=== PATIENT | male | born 1975 | race Caucasian/White ===

== ENCOUNTER 2016-11-10 18:32 | Observation (INO) | payer SELFPAY ==
[~2016-11-10] VITALS: Ht 175.3 cm; Wt 131.6 kg
--- NOTE | ~2016-11-10 | ESTC ---
Cardiac Perfusion Imaging Demographics Patient Name BETO Arrington Gender Male Patient Number [id number] Race Visit Number [id number] Ethnicity Corporate ID Room Number G6302 Accession Number [id number] Height 69 inches Date of 1975 Weight 285 pounds Interpreting Jorge Luis Alcaraz Date of study 11/11/2016 Physician Supervising /MARIA NM Technologist Pam Alejo Ordering Physician Jorge Luis Alcaraz Stress Nina Vincent MD bench lay out technician RVT Stress ECG Reading Jorge Luis Alcaraz Nurse Francesco Fernandez Physician sole layer hand Procedure Type: Nuclear Stress Test:Exercise, Cardiolite Stress Test Procedure Start time: 11/11/2016 08:29 Indications: Chest pain. Risk Factors The patient risk factors include:obesity, Current/Recent(w/in 1 year) tobacco use, hypertension and family history of premature CAD. Conclusions Summary No TID. Normal perfusion images. Normal EF and WM. Stress Protocols Resting ECG RSR. Pre-stress physical exam: Un changed. Predicted HR: 177 bpm ECG Findings No ECG changes suggestive of ischemia. Arrhythmias No rhythm abnormality. Symptoms Back of neck pain 3 mins into stress lasting 3 mins into recovery. Leg pain Stress Interpretation Duration:6 mins. Achieved:88% MPHR. METs:7. DP:28 K. No chest pain.Back pain went from "4" to "2". Reason for termination:SOB,Fatigue and leg pain. EKG:No ischemia. No arrythmias. DTS:5 Imaging Results High risk findings Summed scores - Summed stress score: 0 - Summed rest score: 2 - Summed difference score: -2 Stress ejection Ejection fraction:69 % EDV :148 ml ESV :46 ml Stroke volume :102 ml LV mass :173 gr LV size:Normal Normal LV function Imaging Protocols Rest Stress Isotope:Tc99m Sestamibi IV Isotope: Tc99m Sestamibi IV Isotope dose:15.5 mCi Isotope dose:45 mCi Date:11/11/2016 07:28 Date:11/11/2016 09:29 Technique: SPECT Technique: Gated Supine SPECT Supine IV remains in place after procedure. Scan Time:30 minutes post injection Scan Time:45-60 minutes post injection Medical History Admission Data Admission date: 11/10/2016 Admission Time: 21:38 Hospital Status: Inpatient. Signatures dtt: Lissa Kang dtd: 11/11/16 0829 Physician Self Edit
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
--- NOTE | ~2016-11-10 | ECHO ---
Transthoracic Echocardiography Report (TTE) Demographics Patient Name DEVANTE PÉREZ Date of Study 11/11/2016 Patient Number [id number] Visit Number [id number] Date of 1975 Room Number G6302 Gender Male Number Age 41 year(s) Referring Jorge Luis Alcaraz Director Of Physiotherapy Services Zachery Darby Physician MD Nesha Valente MD Physician Interpreting Jorge Luis Alcaraz Dining Room Captain Physician Supervising Ordering Jorge Luis Alcaraz MD/YOANDYP Physician Nurse Stress Director Of Extension Work Conclusions Contractility Score Summary Normal Left Ventricular contractility was noted. Summary The estimated left ventricular ejection fraction is 55-60% with normal WM and wall thickness. Normal cardiac chamber sizes. No significant valvular abnormalities. Procedure Type of Study TTE procedure:2D Echocardiogram, M-Mode, Doppler , Color Doppler. Procedure Date Date: 11/11/2016 Start: 09:34 AM Study Location: Echo Lab Technical Quality: Adequate visualization Indications:Chest pain. Appropriate Use Criteria: 9 Patient Status: Routine HR: 103 bpm BP: 149/75 mmHg M-Mode/2D Measurements LV Diastolic Dimension: 5.61 cm LV Systolic Dimension: 4.1 cm LV Septum Diastolic: 0.87 cm LV PW Diastolic: 0.96 cm AO Root Dimension: 2.8 cm Cardiac Output: 9 l/min LA Dimension: 3.6 cm EF Estimated: 60 % LVOT: 2.2 cm LVOT VTI: 23 cm RV Base: 2.16 cm LV Stroke volume: 87.39 ml RV Length: 7.52 cm TAPSE: 1.97 cm TDI-S': 11.5 cm/s Doppler Measurements AV Peak Velocity: 1.76 m/s MV Peak E-Wave: 0.89 m/s AV Peak Gradient: 12.39 mmHg MV Peak A-Wave: 0.78 m/s AV Mean Gradient: 6 mmHg MV E/A Ratio: 1.14 LVOT Peak Velocity: 1.5 m/s MV P1/2t: 32 msec MV Deceleration Time: 102 msec TR Gradient:6.15 mmHg PV Peak Velocity: 1.1 m/s Estimated RAP:3 mmHg PV Peak Gradient: 4.84 mmHg Estimated RVSP: 9 mmHg Estimated PASP: 9.15 mmHg E' Septal Velocity: 0.07 m/s A' Septal Velocity: 0.11 m/s E' Lateral Velocity: 0.09 m/s A' Lateral Velocity: 0.11 m/s Findings Left Ventricle Normal left ventricle size and function. Right Ventricle Normal right ventricle structure and function. Left Atrium Normal left atrial size. Right Atrium Normal right atrial size. IVC measures 1.52 cm with inspiratory collapse. Mitral Valve Trivial mitral regurgitation by color Doppler. Aortic Valve Normal aortic valve structure and function. Tricuspid Valve Trivial tricuspid regurgitation by color Doppler. Pulmonic Valve Normal pulmonic valve structure and function. Pericardial Effusion No evidence of pericardial effusion. Miscellaneous Visualized portions of the aortic root and ascending aorta appear normal in size. Pleural Effusion No evidence of pleural effusion. Contractility Score LV regional wall motion:(0-Non visualized 1-Normal 2-Hypokinesis 3-Akinesis 4-Dyskinesis 5-Aneurysm) Signature dtt: Lissa Kang dtd: 11/11/16 0934 Physician Self Edit
--- NOTE | ~2016-11-10 | HP ---
PATIENT'S NAME: DEVANTE MCGUIRE AGE: 41 Y [address] ROOM: [address] [place] [address] LOCATION: GPCU ADMIT DATE: 11/10/2016 History & Physical DISCHARGE DATE: FAMILY PHYSICIAN: PHYSICIAN, UNKNOWN ATTENDING PHYSICIAN: SAROJ PRESTON DATE OF SERVICE: HISTORY OF PRESENT ILLNESS: This is a 41-year-old male patient of Dr. García in [place]. Mr. Mcguire is a 41-year-old male patient who presented to the emergency room in [place] with severe pain between his shoulder blades on the left side just to the left of T5 spinous process which was fairly localized and severely tender. The spinous process per se is also tender. The pain radiates to the front occasionally and also to the inframammary area, but it also shoots down the medial aspect of the arm and then all the way down to the thumb and the little finger. The middle three fingers are spared. These pains are initially noted to be 10 on a scale of 1 to 10 with intermittent worsening. The patient took some aspirins at home yesterday and then eventually went to the emergency room today where initial EKG was nonspecifically abnormal and his troponins were negative. The patient was sent over with a consideration that this is unstable angina. Upon arrival to the emergency room, the patient continued to have chest pain and he was very anxious. He has had various different kinds of chest pains in the past and has not been worked up. His stat echo and stat EKG in the emergency room revealed no acute ST-segment changes or wall motion abnormalities in the echo respectively. He had CT of the aorta with angiogram performed, which revealed no significant abnormalities. This was done mainly because there was almost a 25 mm difference between the blood pressures in the left upper extremity versus right upper extremity with the left upper extremity being higher. He has stopped smoking about 3 weeks ago and has not been on any regular structured exercise program. 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 He is currently in functional class 2 with no paroxysmal nocturnal dyspnea or orthopnea. He does have sleep apnea and uses BiPAP not on a very regular fashion. He has no history of syncope even though for the past six months or so he has been intermittently dizzy. He has occasional palpitations and occasional ankle swelling. The patient has history of hypertension but has not taken many medications. He is not diabetic. His lipids are unknown. He quit smoking three weeks ago and he has significant family history of premature coronary artery disease in his dad who had an LA at age of 56. PATIENT'S NAME: DEVANTE MCGUIRE AGE: 41 Y [address] ROOM: [address] [address] LOCATION: [facility] ADMIT DATE: 11/10/2016 History & Physical DISCHARGE DATE: FAMILY PHYSICIAN: PHYSICIAN, UNKNOWN ATTENDING PHYSICIAN: SAROJ PRESTON He has no prior history of LA, angina, nitroglycerin use, rheumatic fever, heart murmur, congestive heart failure, or enlarged heart. MEDICATIONS: 1. He is currently on Zoloft 100 mg at bedtime. 2. Flexeril, ibuprofen, and aspirin taken on a p.r.n. basis. 3. He does take B-complex vitamins and calcium, magnesium, and zinc. ALLERGIES: HE IS ALLERGIC TO TRAMADOL, TRAZODONE, AND VISTARIL. PAST MEDICAL HISTORY: 1. History of asthma. 2. He has not been diagnosed as COPD as yet. 3. Sleep apnea. 4. History of fracture of his left arm and left foot in the past. 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 He is single. He denies abusing alcohol. He does not use any recreational drugs. His appetite and weight are stable. Sleep is fair. FAMILY HISTORY: Positive for premature coronary artery disease in his dad at age of 56. REVIEW OF SYSTEMS: A 12-point review of systems revealed, 1. He does have sleep disturbances. 2. Possible seizure at the age of 14. 3. Some migraine headaches. 4. Sinus problems. 5. Crusting of his eyes. 6. Fracture of his nose. 7. History of epistaxis. 8. Dizziness or ear infection with his equilibrium being off, off and on, for six months. 9. Acid reflux disease and stomach ulcers. 10. Wheezing and some phlegm production without hemoptysis. 11. Fatty liver. 12. History of kidney stones. 13. Anxiety and depression. PHYSICAL EXAMINATION: VITAL SIGNS: On examination, his blood pressure is 130/80, heart rate is in PATIENT'S NAME: DEVANTE MCGUIRE AGE: 41 Y [address] ROOM: [address] [address] LOCATION: [facility]PCU ADMIT DATE: 11/10/2016 History & Physical DISCHARGE DATE: FAMILY PHYSICIAN: PHYSICIAN, UNKNOWN ATTENDING PHYSICIAN: SAROJ PRESTON the 70s and regular, respirations are 18, afebrile. HEENT: Normal. NECK: Supple with no JVD, thyromegaly, lymphadenopathy, or carotid bruit. HEART: PMI is not well located. First and second heart sounds are regular. There are no added sounds or murmurs. CHEST: Clear to auscultation. ABDOMEN: Soft, obese, bowel sounds are normally present. EXTREMITIES: Reveal no edema. CENTRAL NERVOUS SYSTEM: Intact. ASSESSMENT: A 41-year-old male patient who is hypertensive, who recently quit smoking with unknown lipids, and significant family history of premature coronary artery disease, has back pain radiating to his left shoulder of more than 24 hours' duration now. He has ruled out for LA. He has no wall motion abnormalities by echocardiogram and CT of the aorta is essentially unremarkable. RECOMMENDATION: Admit him to the PCU. We will have the hospitalist see him and help with his chest pain. I think the pain is probably related to either shingles prodrome or possibly pinched nerve. We will also have Neurology see him in the morning. In the meantime, I will do a treadmill Cardiolite study in the morning before his discharge. He is currently on heparin with a thought that this could still be unstable angina. We will leave that for now. We will continue also with his aspirin. MD WALT FINNEGAN/rosie /[id number] D: [id number] T: [id number] HISTORY & PHYSICAL
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
--- NOTE | ~2016-11-10 | ECHO ---
Transthoracic Echocardiography Report (TTE) Demographics Patient Name DEVANTE PÉREZ Date of Study 11/10/2016 Patient Number [id number] Visit Number [id number] Date of 1975 Room Number G6302 Gender Male Number Age 41 year(s) Referring Jorge Luis Alcaraz Board Lining Machine Operator Akash SORENSEN, ROX Physician MD Kay Physician Interpreting Jorge Luis Alcaraz MD Core Man Physician Supervising Ordering Jorge Luis Alcaraz MD, MD/MLP Physician Nurse Stress Fluoroscope Operator Conclusions Contractility Score Summary Normal Left Ventricular contractility was noted. Summary Limited echo to assess LV function. The estimated left ventricular ejection fraction is 60-65% with normal WM. Procedure Type of Study TTE procedure:Echo Limited w/o Contrast. Procedure Date Date: 11/10/2016 Start: 08:30 PM Study Location: ER Technical Quality: Adequate visualization Indications:Chest pain. Appropriate Use Criteria: 9 Patient Status: STAT HR: 85 bpm BP: 120/56 mmHg M-Mode/2D Measurements LV Diastolic Dimension: 4.91 cm LV Systolic Dimension: 3.31 cm LV Septum Diastolic: 1.54 cm LV PW Diastolic: 1.45 cm RV Diastolic Dimension: 3.03 cm Findings Left Ventricle Normal internal dimension,EF and WM. Contractility Score LV regional wall motion:(0-Non visualized 1-Normal 2-Hypokinesis 3-Akinesis 4-Dyskinesis 5-Aneurysm) Signature dtt: Lissa Kang: 11/10/16 2030 Physician Self Edit
[~2016-11-10 18:32] MED LIST changes: -ADVIL200 MG PO; -ALDACTONE25 MG PO; -ASPIRIN LO-DOSE81 MG PO; -B COMPLEX SUBLI59 ML PO; -CALCIUM-MAGNES1 EAC2 PO; -LIPITOR40 MG PO; -PROAIR RESPICL90 MCG INH
[2016-11-10] MEDS ORDERED: FLEXERIL10 MG PO (22:37)
[2016-11-10] MEDS ORDERED: ADVIL200 MG PO (22:38)
[2016-11-10] MEDS ORDERED: NORCO 10-325 T1 EACH PO (22:39)
[2016-11-10] MEDS ORDERED: PROAIR RESPICL90 MCG INH (22:42)
[2016-11-10] MEDS ORDERED: ZOLOFT100 MG PO (22:43)
[2016-11-10] MEDS ORDERED: B COMPLEX SUBLI59 ML PO (22:45)
[2016-11-10] MEDS ORDERED: CALCIUM-MAGNES1 EAC2 PO (22:46)
--- NOTE | 2016-11-11 02:03 | NUR ---
Pt is a 41 year old male admitted to PCU for chest pain. Pt was running errands when he experienced 8/10 pain on left side of chest, left upper back, and down his left arm. Took flexeril and aspirin at home for relief but pain continued until today and he started experiencing shortness of breath as well. Has a history of alcohol abuse, anxiety, bipolar disorder, asthma, pain med abuse. EKG neg, enzymes neg, d-dimer neg. Will have stress test in morning.
--- NOTE | 2016-11-11 04:28 | NUR ---
Significant Event: A/O x3. Afebrile. Anxious. Pain in L) chest/back/arm. Gave aspirin and 1 [place]. VSS on RA. SBP 130-150s. Hep gtt @ 1200/hr, gave 3000ml hep bolus. NPO since midnight. Standby assist. Follow up: Stress test today.
[2016-11-11 06:23] LABS: BASOPHIL % 0.7 %; EOSINOPHIL # 0.2 K/uL (0.0-0.5); EOSINOPHIL % 3.1 %; HEMATOCRIT 43.7 % (37.0-53.0); HEMOGLOBIN 14.6 g/dL (12.0-17.0); IMMATURE GRANULOCYTE % 0.5 %; LYMPHOCYTE # 1.9 K/uL (0.8-4.0); LYMPHOCYTE % 31.5 %; MCH 30.3 pg (27.0-34.0); MCHC 33.4 gm/dL (32.0-36.5); MCV 90.7 fl (83.0-98.0); MONOCYTE # 0.6 K/uL (0.0-1.0); MONOCYTE % 9.8 %; MPV 10.2 fl (9.4-12.4); NEUTROPHIL # (ANC) 3.3 K/uL (1.4-9.0); NEUTROPHIL % 54.4 %; NRBC % 0 /100WBC (0-0.00); RBC 4.82 M/uL (4.00-6.00); RDW-CV 13.3 % (11.9-14.6); WBC 6.1 K/uL (4.0-11.0)
[2016-11-11 06:25] LABS: PLATELET COUNT 183 K/uL (150-450)
[2016-11-11 06:33] LABS: ANION GAP 14.2 (10.0-19.0); BLOOD UREA NITROGEN 13 mg/dL (6-24); CALCIUM 8.3 mg/dL (8.5-10.5); CHLORIDE 108 mMol/L (96-110); CO2 23 mMol/L (22-32); CREATININE 0.9 mg/dL (0.6-1.3); ESTIMATED GFR (MDRD EQUATION) > 60; POTASSIUM 4.2 mMol/L (3.7-5.1); SODIUM 141 mMol/L (135-145)
--- NOTE | 2016-11-11 14:16 | NUR ---
Introduced self and role of care management to patient. He lives in [place] with his mother. He states that he is able to do all his own ADL's. His mother is available to assist as needed. He plans on returning home on discharge. He denies any needs at this time. Will continue to follow.
[2016-11-11] MEDS ORDERED: NEURONTIN300 MG PO (15:35)
[2016-11-11] MEDS ORDERED: ASPIRIN LO-DOSE81 MG PO (15:38)
[2016-11-11] MEDS ORDERED: ALDACTONE25 MG PO (15:39)
[2016-11-11] MEDS ORDERED: LIPITOR40 MG PO (15:41)
--- NOTE | 2016-11-11 15:50 | NUR ---
D/C ORDERS RECIEVED. REVIEWED WITH THE PATIENT ALL D/C INFORMATION INCLUDING MEDICATIONS, FOLLOW-UP APPTS (HE WILL FIND A PCP AND ALSO SET UP HIS OWN APPT IN [place] WITH HIS NEUROLOGIST), AND INSTRUCTIONS. DOUG PRINTOUTS GIVEN ON ALL NEW MEDS. PIV D/C'D AND CATHETER INTACT. PATIENT VERBALIZED UNDERSTANDING OF ALL D/C INFORMATION. REFUSED FLU SHOT. TAKEN VIA W/C AND COMMISSION AGENT LIVESTOCK TO THE FRONT ENTRANCE OF THE HOSPITAL AND HIS MOTHER TO DRIVE HIM HOME.
== END 2016-11-11 15:50 | disposition disaster alternative care site (69) ==
LOC: GMED 18:32 → GPCU 21:38
PROVIDERS: ADMIT Family Medicine
DX: M54.9 Dorsalgia, unspecified (principal); R07.9 Chest pain, unspecified; G89.29 Other chronic pain; J45.909 Unspecified asthma, uncomplicated; F32.9 Major depressive disorder, single episode, unspecified; I10 Essential (primary) hypertension; K21.9 Gastro-esophageal reflux disease without esophagitis; E78.5 Hyperlipidemia, unspecified; G47.33 Obstructive sleep apnea (adult) (pediatric); F10.21 Alcohol dependence, in remission; K76.0 Fatty (change of) liver, not elsewhere classified; Z88.8 Allergy status to other drugs, medicaments and biological substances; Z87.891 Personal history of nicotine dependence; Z87.442 Personal history of urinary calculi; Z98.890 Other specified postprocedural states
CPT/HCPCS: A9500; G0378; J1644; J7030; J7050; Q9967

== ENCOUNTER → 2016-11-10 | Outpatient (CLI) | payer SELFPAY ==
[~2016-11-10] MED LIST: ADVIL200 MG PO; ALBUTEROL2.5 MG/0.5 INH; ALDACTONE25 MG PO; ASPIRIN LO-DOSE81 MG PO; ATIVAN 1 MG1 MG PO; B COMPLEX SUBLI59 ML PO; B COMPLEX1 EACH PO; CALCIUM-MAGNES1 EAC2 PO; CARAFATE SU100 MG/ML PO; CATAPRES0.1 M1 PO; CELEXA20 MG PO; FLEXERIL10 MG PO; FOLIC ACID1 MG PO; HALDOL1 MG PO; LIBRIUM25 MG PO; LIPITOR40 MG PO; MAG-OX-400(241400 MG PO; MELATONIN3 MG PO; MOBIC7.5 MG PO; NAPROSYN500 MG PO; NEURONTIN300 MG PO; NICODERM/HABITR21 MG TRANS; NICOTINE PATCH1 EAC1 TOP; NORCO 10-325 T1 EACH PO; ONDANSETRON ODT4 MG PO; ONE DAILY FOR1 EACH PO; PERCOCET 10-321 EACH PO; PERCOCET 5-3251 EACH PO; PRILOSEC10 MG PO; PRINIVIL (ZESTR20 MG PO; PROAIR RESPICL90 MCG INH; PROTONIX40 MG PO; PROVENTIL OR V6.7 GM INH; THERAGRAN-M1 TAB PO; THIAMINE HCL100 MG PO; TRICOR 160 MG160 MG PO; ZOFRAN ODT4 MG PO; ZOLOFT100 MG PO; ZOLOFT25 MG PO; ZOLOFT50 MG PO
== END | disposition disaster alternative care site (69) ==
LOC: GAMB 18:04
DX: I20.9 Angina pectoris, unspecified (principal); R07.9 Chest pain, unspecified; Z79.891 Long term (current) use of opiate analgesic; Z79.899 Other long term (current) drug therapy; Z88.8 Allergy status to other drugs, medicaments and biological substances
CPT/HCPCS: A0425; A0426